=== PATIENT | male | born 1960 | race Caucasian/White ===

== ENCOUNTER → 2020-08-11 00:13 | Outpatient (CLI) | payer MEDICARE, OTHER, SELFPAY ==
[2020-08-11 19:32] LABS: SARS-CoV-2 RNA PCR Negative
== END ==
PROVIDERS: Visit Provider Surgery
DX: Z01.812 Encounter for preprocedural laboratory examination (principal); Z20.822 Contact with and (suspected) exposure to COVID-19
CPT/HCPCS: C9803; U0003; U0005

== ENCOUNTER 2020-08-14 01:41 | Day surgery (SDC) | payer MEDICARE, OTHER, SELFPAY ==
[2020-07-23 14:43] VITALS: BMI 28.4
[2020-08-14 06:51] VITALS: BMI 27.8
[2020-08-14 06:53] VITALS: BP 123/77; PULSE 67; RESP 18; TEMP 36.6; O2SAT 98
--- NOTE | 2020-08-14 06:56 | WPDANESEPPF ---
Anes - Initial Pre Proc Eval Procedure: Operation Date: 08/14/20 08:00 Proposed Procedures p Esophagogastroduodenoscopy & Screening Colonoscopy - Dylan Delgado DO Date/Time: 08/14/20 06:56 Surgeon: Dylan Delgado DO Pre Op Diagnosis: GERD, gastritis, neoplasm screening Patient Data Age: 59 Gender: M Height: 6 ft Weight: 92.9 kg Last Vital Signs Temp 36.6 C 08/14/20 06:53 Pulse 67 08/14/20 06:53 Resp 18 08/14/20 06:53 BP 123/77 08/14/20 06:53 Pulse Ox 98 08/14/20 06:53 Allergies Allergy/AdvReac Type Severity Reaction Status Date / Time erythromycin base Allergy Intermediate abd pain Verified 08/14/20 06:50 Home Medications Medication Instructions Recorded Confirmed Type alprazolam 1 mg PO TID PRN 07/23/20 07/23/20 History citalopram 07/23/20 History famotidine 20 mg PO BID 07/23/20 07/23/20 History pantoprazole 40 mg PO BID 07/23/20 07/23/20 History zolmitriptan [Zomig] 5 mg BID PRN 07/23/20 07/23/20 History Patient hx anesthesia problems: none Family hx anesthesia problems: none FORMERLY [facility], 1928–1983 Past Medical History Medical History Anxiety Cholelithiasis Depression GERD (gastroesophageal reflux disease) PTSD (post-traumatic stress disorder) Surgical History Surgical History History of cholecystectomy Social History Social History Smoking packs per day: 1 Smoking cigarettes per day: 20.0 Years smoked: 21 Smoking pack-years: 21.00 Smoking status: Former smoker Tobacco type: cigarettes Living arrangements: with family Gender identity (if verbalized by the patient): Male Spiritual care concerns: No Anes - Eval Final PreProcedure Day of Procedure 08/14/20 06:56 Patient weight: overweight Heart: regular rate and rhythm Lungs: clear to auscultation Airway: Mallampati scale class 1 Neurological: alert and oriented Last oral intake: >/= 8 hours ASA classification: III Emergent: no Anesthetic plan: proceed Anesthesia type and monitoring: general GIVS and standard monitoring Informed Consent: The patient's anesthetic plan and its attendant risks and benefits were discussed with the patient/family/POA. Questions were solicited and answers provided to the satisfaction of the patient/family/POA.
[2020-08-14] MEDS: LACTATED RINGERS 1,000 ML 150 ML IV CONT (07:03)
--- NOTE | 2020-08-14 07:56 | PM.IMHP ---
H&P: HPI History of Present Illness Date/Time: 08/14/20 07:56 Chief Complaint: GERD Narrative: Elliott Bethea is a 59 year old male presents with GERD symptoms and needs screening colonoscopy. fam hx colon cancer in his sister. Denies hematochezia or melena. He has to take famotidine and pantoprazole daily. Gets epigastric pain frequently but also has a past hx of pancreatitis. Review of Systems Review of Systems: All systems reviewed & are unremarkable except as noted in HPI and below Constitutional: Constitutional: Denies chills, Denies fever(s), Denies headache(s) and Denies weight loss Eyes: Eyes: Denies change in vision ENT: Denies dizziness, Denies headache(s), Denies neck mass and Denies throat swelling Cardiovascular: Cardiovascular: Denies chest pain, Denies lightheadedness and Denies dyspnea Respiratory: Respiratory: Denies cough, Denies dyspnea and Denies wheezing Gastrointestinal: Gastrointestinal: Reports as per HPI, Reports abdominal pain, Denies nausea and Denies vomiting Genitourinary: Genitourinary: Denies hematuria and Denies dysuria Musculoskeletal: Musculoskeletal: Reports as per HPI Integumentary/Breasts: Skin/Breast: Reports as per HPI Neurologic: Denies dizziness and Denies headache(s) Allergic/Immunologic: Allergic/Immunologic: Denies throat swelling and Denies wheezing PMFSH Past Medical History Medical History Anxiety Cholelithiasis Depression GERD (gastroesophageal reflux disease) PTSD (post-traumatic stress disorder) Surgical History Surgical History History of cholecystectomy Social History Social History Smoking packs per day: 1 Smoking cigarettes per day: 20.0 Years smoked: 21 Smoking pack-years: 21.00 Smoking status: Former smoker Tobacco type: cigarettes Living arrangements: with family Gender identity (if verbalized by the patient): Male Spiritual care concerns: No Meds Home Medications and Allergies Home Medications Medication Instructions Recorded Confirmed Type alprazolam 1 mg PO TID PRN 07/23/20 07/23/20 History citalopram 07/23/20 History famotidine 20 mg PO BID 07/23/20 07/23/20 History pantoprazole 40 mg PO BID 07/23/20 07/23/20 History zolmitriptan [Zomig] 5 mg BID PRN 07/23/20 07/23/20 History Allergies Allergy/AdvReac Type Severity Reaction Status Date / Time erythromycin base Allergy Intermediate abd pain Verified 08/14/20 06:50 Vital Signs Vital Signs - 24 hr 08/14/20 06:53 Temperature 36.6 C Pulse Rate 67 Respiratory Rate 18 Blood Pressure 123/77 Pulse Oximetry 98 Exam Const: General: no acute distress and alert Orientation/consciousness: patient oriented x3 HENMT: Head: normocephalic and atraumatic Ears: hearing grossly normal bilaterally General nose exam: Normal nares present Mouth: Yes Normal oral and palatal mucosa present Eyes: Periorbital: periorbital findings normal Sclera: sclerae normal EOM: EOMs intact bilaterally Neck: Neck: normal visual inspection, no lymphadenopathy and trachea midline Chest: Chest palpation & inspection: normal inspection of the chest Resp: Effort & Inspection: normal respiratory effort Auscultation: clear to auscultation bilaterally Cardio: Jugular venous distension: no JVD Rate: regular rate Rhythm: regular rhythm Heart sounds: S1 normal heart sound present and S2 normal heart sound present Peripheral pulses: Peripheral pulses 2+ throughout GI: Inspection: normal to inspection GI Palp: Yes Soft to palpation, No Tenderness to palpation present (GI), No Guarding due to palpation present (GI) and No Rebound tenderness present Percussion: Yes normal to percussion Auscultation: normal bowel sounds : General: Yes no CVA tenderness Back/Spine/Pelvis: Back: no CVA tenderness Neuro: G
[2020-08-14 08:41] VITALS: BP 103/58; PULSE 62; RESP 18; O2SAT 99
[2020-08-14 08:51] VITALS: BP 102/74; PULSE 60; RESP 18; O2SAT 99
[2020-08-14 09:01] VITALS: BP 126/84; PULSE 58; RESP 20; O2SAT 99
== END 2020-08-14 09:12 | disposition home or self-care (01) ==
PROVIDERS: Visit Provider Surgery
PROC: 0DJ08ZZ Inspection of Upper Intestinal Tract, Via Natural or Artificial Opening Endoscopic (ICD-10-PCS; CPT 43235; principal; 2020-08-14 08:00)
DX: Z12.11 Encounter for screening for malignant neoplasm of colon (principal); K64.8 Other hemorrhoids; Z80.0 Family history of malignant neoplasm of digestive organs; K21.9 Gastro-esophageal reflux disease without esophagitis; K44.9 Diaphragmatic hernia without obstruction or gangrene; K31.7 Polyp of stomach and duodenum; F41.8 Other specified anxiety disorders; F43.10 Post-traumatic stress disorder, unspecified; Z87.891 Personal history of nicotine dependence
CPT/HCPCS: 45378; 43239; 88305; C9803; J2704; J7120; U0003; U0005

== ENCOUNTER 2021-01-26 11:02 | Outpatient (CLI) | payer MEDICARE, OTHER, SELFPAY ==
--- NOTE | ~2021-01-26 | XR_ITS ---
EXAMINATION: XR hand LT min 3V, XR hand RT min 3V DATE: 01/26/2021 11:39 INDICATION: Bilateral hand pain. TECHNIQUE: 1. Posteroanterior, oblique and lateral views of the left hand were obtained. 2. Posteroanterior, oblique and lateral views of the right hand were obtained. COMPARISON: None. FINDINGS: Normal alignment at the bilateral hands. No fracture. Mild polyarticular osteoarthritis characterized by mild nonuniform joint space narrowing with a few tiny marginal osteophytes most prominent at the first carpal metacarpal joints, the first metacarpophalangeal and several predominantly distal interp halangeal joints. No erosions to suggest inflammatory arthritis. Soft tissues are unremarkable. IMPRESSION: 1. Mild polyarticular osteoarthritis at the bilateral hands. Reviewed, dictated and finalized at location A. IMPRESSION: 1. Mild polyarticular osteoarthritis at the bilateral hands.
== END 2021-01-26 11:03 | disposition home or self-care (01) ==
LOC: ANHIMG 11:07
DX: M79.642 Pain in left hand (principal); M79.641 Pain in right hand; M19.042 Primary osteoarthritis, left hand; M19.041 Primary osteoarthritis, right hand
CPT/HCPCS: 73130

== ENCOUNTER 2021-02-04 10:44 | Outpatient (CLI) | payer MEDICARE, OTHER, SELFPAY ==
--- NOTE | ~2021-02-04 | US_ITS ---
EXAMINATION: US carotid duplex BI DATE: 02/04/2021 11:32 INDICATION: Vertigo TECHNIQUE: Grayscale, color Doppler, and pulsed Doppler images of the cervical carotid arteries were obtained. The degree of vessel stenosis is placed in one of the following categories: normal, <50%, 5 0-69%, >=70% but less than near-occlusion, near-occlusion, or total occlusion. Note that percent sten osis relative to normal distal artery lumen diameter is indirectly measured from velocity measurement s as described by Mason, et al. Radiology 2003; 229:[id number]. Notes: Normal: Peak systolic velocity <125 centimeters/sec and no plaque <50%. Peak systolic velocity <125 ( EDV <40; ICA/CCA PSV ratio <2.0; used these factors only a tandem lesions or low cardiac output or co ntralateral disease) 50-69 %: PSV 125-230 (EDV 40-100; ratio 2-4) >= 70% but less than near occlusion: PSV greater than 230 (EDV > 100; ratio> 4.0) Near Occlusion: PSV that is variable; markedly narrowed lumen Occlusion: Absent flow on color/spectral Doppler and no lumen on sarabia scale. COMPARISON: None. FINDINGS: RIGHT: The right common carotid artery (CCA) peak systolic velocity (PSV) is 72 cm/s. The right internal car otid artery (ICA) PSV is 101 cm/s. The right ICA end-diastolic velocity (EDV) is 37 cm/s. The right I CA/CCA PSV ratio is 1.4. The external carotid artery (ECA) PSV is 106 cm/s. There is antegrade flow i n the right vertebral artery. LEFT: The left CCA PSV is 80 cm/s. The left ICA PSV is 90 cm/s. The left ICA EDV is 27 cm/s. The left ICA/C CA PSV ratio is 1.1. The ECA PSV is 104 cm/s. There is antegrade flow in the left vertebral artery. IMPRESSION: 1. Less than 50% stenosis in the right internal carotid artery by sonographic criteria. 2. Less than 50% stenosis in the left internal carotid artery by sonographic criteria. Reviewed, dictated and finalized at location A. IMPRESSION: 1. Less than 50% stenosis in the right internal carotid artery by sonographic richy ortiz. 2. Less than 50% stenosis in the left internal carotid artery by sonographic kishor pollard.
== END 2021-02-04 10:45 | disposition home or self-care (01) ==
DX: R42 Dizziness and giddiness (principal); I65.23 Occlusion and stenosis of bilateral carotid arteries
CPT/HCPCS: 93880

== ENCOUNTER 2022-03-29 08:01 | Outpatient (CLI) | payer MEDICARE, OTHER, SELFPAY ==
--- NOTE | ~2022-03-29 | US_ITS ---
EXAMINATION: US carotid duplex BI DATE: 03/29/2022 09:21 INDICATION: Carotid atherosclerosis and stenosis TECHNIQUE: Grayscale, color Doppler, and pulsed Doppler images of the cervical carotid arteries were obtained. The degree of vessel stenosis is placed in one of the following categories: normal, <50%, 5 0-69%, >=70% but less than near-occlusion, near-occlusion, or total occlusion. Note that percent sten osis relative to normal distal artery lumen diameter is indirectly measured from velocity measurement s as described by Mason, et al. Radiology 2003; [id number]. COMPARISON: 02/04/2021 FINDINGS: RIGHT: The right common carotid artery (CCA) peak systolic velocity (PSV) is 86 cm/s. The right internal car otid artery (ICA) PSV is 73 cm/s. The right ICA end-diastolic velocity (EDV) is 29 cm/s. The right IC A/CCA PSV ratio is 1.0. Grayscale and color Doppler images yield an estimate of <50% diameter reducti on from plaque in the ICA. The external carotid artery (ECA) PSV is 91 cm/s. There is antegrade flow in the right vertebral artery. LEFT: The left CCA PSV is 104 cm/s. The left ICA PSV is 77 cm/s. The left ICA EDV is 26 cm/s. The left ICA/ CCA PSV ratio is 1.4. Grayscale and color Doppler images yield an estimate of <50% diameter reduction from plaque in the ICA. The ECA PSV is 103 cm/s. There is antegrade flow in the left vertebral arter y. IMPRESSION: 1. <50% stenosis in the right internal carotid artery. 2. <50% stenosis in the left internal carotid artery. Reviewed, dictated and finalized at location B.
== END 2022-03-29 08:02 | disposition home or self-care (01) ==
DX: I65.23 Occlusion and stenosis of bilateral carotid arteries (principal)
CPT/HCPCS: 93880

== ENCOUNTER 2022-07-30 09:16 | Emergency (ER) | payer OTHER, MEDICARE, SELFPAY ==
--- NOTE | ~2022-07-30 | XR_ITS ---
AP and oblique views of the left ribs, and PA chest radiograph Clinical History: Pain Findings: Minimally displaced fracture at the very anterior aspect of the left sixth rib is noted. Krys ngs are clear, without focal consolidation or pleural effusion. Cardiomediastinal contour is within n ormal limits. Soft tissues are unremarkable. Impression: Minimally displaced fracture at the anterior aspect of the left sixth rib. Clear lungs. Reviewed, dictated and finalized at location . L TEACHER Impression: Minimally displaced fracture at the anterior aspect of the left sixth rib. Clear lungs.
[2022-07-30 09:26] VITALS: BP 161/91; PULSE 46; RESP 15; TEMP 36.6; O2SAT 98
--- NOTE | 2022-07-30 10:56 | ED.FALL ---
HPI - Fall General Chief Complaint: Fall Stated Complaint: fall 4 days ago Time Seen by Provider: 07/30/22 09:39 Source: patient Mode of arrival: ambulatory Limitations: no limitations History of Present Illness HPI Narrative: Patient is a 61-year-old male who presents to the ED with report of left anterior rib pain. Patient reports he tripped and fell on 07/21 and landed with his chest wall directly against the edge of a chair. He did not hit his head or lose consciousness. He has complained of pain to his left anterior ribs since the fall. He has been taking Tylenol and a muscle relaxer with minimal relief. He states pain is worse with movement, laughing, coughing. He denies any trouble breathing. Denies any other areas of pain. He was unable to get into see his primary care doctor and was referred here for further evaluation. Related Data Home Medications Medication Instructions Recorded Confirmed alprazolam 1 mg tablet 1 mg PO TID PRN Anxiety 07/23/20 07/23/20 citalopram 07/23/20 famotidine 20 mg tablet 20 mg PO BID 07/23/20 07/23/20 pantoprazole 40 mg tablet,delayed 40 mg PO BID 07/23/20 07/23/20 release zolmitriptan 5 mg tablet (Zomig) 5 mg BID PRN Migraine Headache 07/23/20 07/23/20 Allergies Allergy/AdvReac Type Severity Reaction Status Date / Time erythromycin base Allergy Intermediate abd pain Verified 08/14/20 06:50 Review of Systems Review of Systems: CONSTITUTIONAL: Denies fever, chills, or sweats. CARDIOVASCULAR: See HPI. RESPIRATORY: Denies dyspnea. GASTROINTESTINAL: Denies abdominal pain, nausea, vomiting. MUSCULOSKELETAL: See HPI. NEUROLOGIC: Denies HI, LOC, headache, numbness, or weakness. All systems reviewed & are unremarkable except as noted in HPI and below PMFSH Past Medical History Medical History Anxiety Cholelithiasis Depression GERD (gastroesophageal reflux disease) PTSD (post-traumatic stress disorder) Surgical History Surgical History History of cholecystectomy Social History Social History Smoking packs per day: 1 Smoking cigarettes per day: 20.0 Years smoked: 21 Smoking pack-years: 21.00 Smoking status: Former smoker Tobacco type: cigarettes Living arrangements: with family Gender identity (if verbalized by the patient): Male Spiritual care concerns: No Exam Narrative: GENERAL: Well appearing, well-nourished, non-toxic, in no acute distress. HEAD: Normocephalic, atraumatic. NECK: Supple. No adenopathy, no masses. RESPIRATORY: Airway patent, respirations nonlabored. Clear to auscultation bilaterally, no rales, rhonchi, wheezing. No splinting. CARDIOVASCULAR: Regular rate and rhythm without murmurs, rubs, or gallops. Radial pulses 2+ and equal bilaterally. ABDOMINAL: Soft, nontender, nondistended, no hepatosplenomegaly. Normoactive BS. MUSCULOSKELETAL: Moves all extremities. Strength/ROM intact without gross deformities. Point tenderness over left lower anterior chest wall/rib cage, reproducing pain. SKIN: Warm, dry, normal color. No rashes. NEURO: A&O X3. Speech clear. Cranial nerves II-XII grossly intact. Steady gait. No ataxic movements. PSYCHIATRIC: Appropriate mood and affect. Normal interaction. Course Vital Signs Vital signs: Vital Signs Temperature 98 F 07/30/22 09:26 Pulse Rate 46 L 07/30/22 09:26 Respiratory Rate 15 07/30/22 09:26 Blood Pressure 161/91 H 07/30/22 09:26 Pulse Oximetry 98 07/30/22 09:26 Oxygen Delivery Room Air 07/30/22 09:26 Temperature 98 F 07/30/22 09:26 Pulse Rate 46 L 07/30/22 09:26 Respiratory Rate 15 07/30/22 09:26 Blood Pressure 161/91 H 07/30/22 09:26 Pulse Oximetry 98 07/30/22 09:26 Oxygen Delivery Room Air 07/30/22 09:26 MDM - Fall MDM Narrative Medical decision making narrative
--- NOTE | 2022-07-30 11:05 | ECG_ITS ---
Measurements Intervals [place] Rate: 54 P: 27 WI: 177 QRS: 3 QRSD: 105 T: -2 QT: 420 QTc: 400 Interpretive Statements SINUS BRADYCARDIA OTHERWISE NORMAL ECG COMPARED TO ECG 03/06/2019 23:12:40 NO SIGNIFICANT CHANGES Electronically Signed On 07-30-2022 13:15:34 NUCLEAR CONTROL ROOM OPERATOR by Hitesh Cruz M.D.
== END 2022-07-30 11:47 | disposition home or self-care (01) ==
PROVIDERS: Emergency Provider Physician Assistant
DX: S22.32XA Fracture of one rib, left side, initial encounter for closed fracture (principal); K21.9 Gastro-esophageal reflux disease without esophagitis; F41.9 Anxiety disorder, unspecified; F32.A Depression, unspecified; F43.10 Post-traumatic stress disorder, unspecified; Z87.891 Personal history of nicotine dependence; W01.190A Fall on same level from slipping, tripping and stumbling with subsequent striking against furniture, initial encounter
CPT/HCPCS: 71101; 93005; 99283

== ENCOUNTER 2022-09-15 07:48 | Day surgery (SDC) | payer OTHER, SELFPAY ==
[2022-09-08 14:21] VITALS: BMI 32.8
--- NOTE | 2022-09-15 08:07 | WPDHPUPDATE1 ---
History and Physical Update Update Date/Time: 09/15/22 08:07 History and Physical has been reviewed, including an updated exam of the patient. There are NO changes in the patient's condition. Risks, benefits, and alternatives have been discussed and questions answered. Patient agrees to proceed with procedure.
[2022-09-15 08:50] VITALS: BP 126/83; PULSE 62; RESP 20; TEMP 36.9; O2SAT 100
--- NOTE | 2022-09-15 09:14 | P.PNAN_ITS ---
Anes - Initial Pre Proc Eval Procedure: Operation Date: 09/15/22 09:30 Proposed Procedures p Cataract Extraction with Lens Implant-Left Eye - Sal Guan MD Date/Time: 09/15/22 09:14 Surgeon: Sal Guan MD Pre Op Diagnosis: Age related nuclear cataract left eye Patient Data Age: 62 Gender: M Height: 1.85 m Weight: 113 kg Allergies Allergy/AdvReac Type Severity Reaction Status Date / Time amoxicillin [From Augmentin] AdvReac Abdominal Verified 09/08/22 14:25 Pain clavulanic acid AdvReac Abdominal Verified 09/08/22 14:25 [From Augmentin] Pain Home Medications Medication Instructions Recorded Confirmed Type alprazolam 1 mg tablet 1 mg PO TID PRN Anxiety 07/23/20 09/08/22 History citalopram 1 tab-cap PO DAILY 07/23/20 09/08/22 History famotidine 20 mg tablet 20 mg PO BID 07/23/20 09/08/22 History pantoprazole 40 mg tablet,delayed 40 mg PO BID 07/23/20 09/08/22 History release zolmitriptan 5 mg tablet (Zomig) 5 mg BID PRN Migraine Headache 07/23/20 09/08/22 History hydrocodone 5 mg-acetaminophen 325 1 tablet PO Q6H PRN pain #15 tabs 07/30/22 09/08/22 Rx mg tablet Patient hx anesthesia problems: none Family hx anesthesia problems: none Results Review: All pre-operative results and documents have been reviewed as part of the pre- operative evaluation. [facility] Past Medical History Medical History (Updated 09/15/22 @ 09:16 by Benja Naranjo MD) Anxiety Cholelithiasis Chronic narcotic use Depression GERD (gastroesophageal reflux disease) Osteoarthritis PTSD (post-traumatic stress disorder) Surgical History Surgical History History of cholecystectomy Social History Social History Smoking packs per day: 1 Smoking cigarettes per day: 20.0 Years smoked: 21 Smoking pack-years: 21.00 Smoking status: Never smoker Tobacco type: cigarettes Alcohol intake: never Substance use: never Substance use type: does not use Living arrangements: with family Gender identity (if verbalized by the patient): Male Spiritual care concerns: No Anes - Eval Final PreProcedure Day of Procedure 09/15/22 09:14 Patient weight: obese Heart: regular rate and rhythm Lungs: clear to auscultation Airway: Mallampati scale class 1 Neurological: alert and oriented Last oral intake: >/= 8 hours ASA classification: III Emergent: no Anesthetic plan: proceed Anesthesia type and monitoring: monitored anesthesia care and standard monitoring Results Review: All pre-operative results and documents have been reviewed as part of the pre- operative evaluation. Informed Consent: The patient's anesthetic plan and its attendant risks and benefits were discussed with the patient/family/POA. Questions were solicited and answers provided to the satisfaction of the patient/family/POA.
[2022-09-15] MEDS: TETRACAINE HCL 0.5% OPHTH SOLN 4 ML BTL 1 DROP AFFCTD EYE ×3 (09:20→09:30)
[2022-09-15] MEDS: OFLOXACIN 0.3% OPHTH SOLN 5 ML BTL 1 DROP AFFCTD EYE (09:20)
[2022-09-15] MEDS: LIDOCAINE HCL 2% JELLY 5 ML TUBE 1 APPLIC AFFCTD EYE (09:57)
[2022-09-15] MEDS: LIDOCAINE HCL 1% PF INJ 5 ML VIAL 1 ML INTRAOCULA (10:10)
[2022-09-15] MEDS: NEOMYCIN/POLYMYXIN/DEXAMETH OP OINT 3.5 GM TUBE 1 APPLIC AFFCTD EYE (10:17)
[2022-09-15] MEDS: HOME MEDICATION 1 EACH AFFCTD EYE (10:21)
[2022-09-15 10:26] VITALS: BP 131/82; PULSE 64; RESP 16; O2SAT 98
[2022-09-15] MEDS: acetaZOLAMIDE TAB 250 MG TABLET PO (10:40)
--- NOTE | 2022-09-15 11:50 | W.PM.PROC2 ---
Procedure Note - Detailed Date of Procedure 09/15/22 Pre-op Diagnosis Age related nuclear cataract left eye Post-op Diagnosis Same Procedure Performed Cataract Extraction (by Phacoemulsification) and lntraocular Lens Implant Surgeon Sal Guan MD Anesthesia MAC Description of Procedure The eye was anesthetized with topical 0.75% bupivacaine. After intravenous sedation and placement of monitors, the patient was prepped and draped in the usual sterile manner. A lid speculum was placed. A paracentesis was made, and preservative free 1% lidocaine was instilled in the anterior chamber. The anterior chamber was then filled with Viscoat viscoelastic. A elana keratome was used to create the wound. Continuous tear anterior capsulotomy was performed. The lens was hydro dissected before being removed with phacoemulsification. The remaining lenticular cortex was removed with aspiration. The capsular bag was polished and filled with viscoelastic material. An intraocular lens was chosen, inspected, irrigated and placed within the capsular bag where it was seen to be centered and stable. The viscoelastic material was aspirated. The wound was closed and found to be watertight. Ciloxan drops were placed in the eye. The speculum was removed. A Escalera shield was applied. The patient tolerated the procedure well and left the operating room in satisfactory condition. Implants See chart Complications None Condition Stable Disposition Same day
--- NOTE | 2022-09-15 11:52 | WPDANESPN ---
Anes - Prog Note Post-Op Date/Time: 09/15/22 11:52 Cardiovascular status: normal Respiratory status: normal Airway patency: baseline Mental status: baseline Post-Op hydration status: normal Vital Signs: Last Vital Signs Temp 36.9 C 09/15/22 08:50 Pulse 64 09/15/22 10:26 Resp 16 09/15/22 10:26 BP 131/82 09/15/22 10:26 Pulse Ox 98 09/15/22 10:26 O2 Del Method Room Air 09/15/22 10:26 Pain Score (VAS): 0 Post-procedural complaints: none Patient Feedback: Patient satisfied with anesthetic care.
== END 2022-09-15 10:45 | disposition home or self-care (01) ==
PROVIDERS: Visit Provider Student in an Organized Health Care Education/Training Program
PROC: (CPT 66983; principal; 2022-09-15 09:30)
DX: H25.12 Age-related nuclear cataract, left eye (principal)
CPT/HCPCS: 66984

== ENCOUNTER 2022-10-06 11:11 | Emergency (ER) | payer MEDICARE, OTHER, MEDICAID, SELFPAY ==
[2022-10-06 11:26] VITALS: BP 136/74; PULSE 65; RESP 18; TEMP 36.2; O2SAT 99
--- NOTE | 2022-10-06 11:39 | ED.URI ---
HPI - URI/Sore Throat General Chief Complaint: Upper Respiratory Infection Stated Complaint: sorethroat Time Seen by Provider: 10/06/22 11:39 Source: patient, RN notes reviewed and old records reviewed Mode of arrival: ambulatory Limitations: no limitations History of Present Illness HPI Narrative: 62-year-old male who presents to [facility] with complaints sore throat for 2 day duration with some nasal congestion and drainage. Patient denies any cough or any shortness of breath or any ear pain, or any noted fevers, chills, sweats or any body aches. Patient has been taking nicky Demotte cold and flu medication OTC for his symptoms. Patient reports no ill contacts. MD elicited complaint: sore throat Onset (ago): day(s) (2) Pain scale (0-10): 4 Able to tolerate fluids by mouth: Yes Treatments prior to arrival: cold medicine Related Data Home Medications Medication Instructions Recorded Confirmed alprazolam 1 mg tablet 1 mg PO TID PRN Anxiety 07/23/20 10/06/22 citalopram 1 tab-cap PO DAILY 07/23/20 10/06/22 famotidine 20 mg tablet 20 mg PO BID 07/23/20 09/15/22 pantoprazole 40 mg tablet,delayed 40 mg PO BID 07/23/20 10/06/22 release zolmitriptan 5 mg tablet (Zomig) 5 mg BID PRN Migraine Headache 07/23/20 09/15/22 Allergies Allergy/AdvReac Type Severity Reaction Status Date / Time amoxicillin [From Augmentin] AdvReac Abdominal Verified 10/06/22 11:30 Pain clavulanic acid AdvReac Abdominal Verified 10/06/22 11:30 [From Augmentin] Pain Review of Systems Review of Systems: CONSTITUTIONAL: Denies malaise, chills, sweats, or fever. EYES: Denies visual changes, redness, or discharge. ENT: Reports rhinorrhea, congestion, sinus pain,no otalgia, positive for sore throat. CARDIOVASCULAR: Denies chest pain, palpitations, or edema. RESPIRATORY: Reports no cough.? Denies dyspnea. GASTROINTESTINAL: Denies abdominal pain, nausea, vomiting, diarrhea SKIN: Denies rash or itching. MUSCULOSKELETAL: Denies myalgia. NEUROLOGIC: Denies headache. All systems reviewed & are unremarkable except as noted in HPI and below PMFSH Past Medical History Medical History Anxiety Cholelithiasis Chronic narcotic use Depression GERD (gastroesophageal reflux disease) Osteoarthritis PTSD (post-traumatic stress disorder) Surgical History Surgical History History of cholecystectomy Social History Social History Smoking packs per day: 1 Smoking cigarettes per day: 20.0 Years smoked: 21 Smoking pack-years: 21.00 Smoking status: Former smoker Tobacco type: cigarettes Alcohol intake: never Substance use: never Substance use type: does not use Living arrangements: with family Gender identity (if verbalized by the patient): Male Spiritual care concerns: No Comments At time of signature, agree with nursing past medical, surgical, social and family history. There is no relevant family history pertinent to the presenting complaint Exam Narrative: GENERAL: Well-appearing, well-nourished, and in no acute distress. HEAD: Normocephalic EYES: PERRLA, conjunctivae clear ENT: Nares clear, turbinates edematous and erythematous, clear discharge. Mucous membranes moist. TM pearly sarabia with dull light reflex bilaterally; no tragal tenderness. Oropharynx erythematous without lesions. Tonsils not enlarged and without exudate, no drooling, no hoarseness, no trismus, uvula midline. NECK: Supple. No lymphadenopathy CHEST: Clear to auscultation, breath sounds equal. No wheezing, rhonchi, rales, or stridor. No respiratory distress, speaks in full sentences. no tachypnea SAO2 99% on room air. HEART: Regular rate and rhythm. No murmur heard. SKIN: Warm, dry, no rash. NEURO: Alert and oriented x3. PSYCH: Normal mood and affect Course
== END 2022-10-06 12:06 | disposition home or self-care (01) ==
PROVIDERS: Emergency Provider Registered Nurse
DX: J02.9 Acute pharyngitis, unspecified (principal); K21.9 Gastro-esophageal reflux disease without esophagitis; M19.90 Unspecified osteoarthritis, unspecified site; F41.9 Anxiety disorder, unspecified; F32.A Depression, unspecified; F43.10 Post-traumatic stress disorder, unspecified
CPT/HCPCS: 87081; 87880; 99213; G0463

== ENCOUNTER 2024-01-10 10:22 | Outpatient (CLI) | payer MEDICARE, OTHER, SELFPAY ==
--- NOTE | ~2024-01-10 | DEXA_ITS ---
Bone Density Report Name: CHAU SHARIF Age: 63 Sex: Male Ethnicity: White Date of : 1960 Indication: Referring Provider: PAMELA MERRITT Study: Bone densitometry was performed. Exam Date: January 10, 2024 Accession number: [id number] Bone Density: Region BMD T-score Z-score Classification AP Spine(L1-L4) 0.871 -2.0 -1.3 Osteopenia Femoral Neck (Left) 0.746 -1.4 -0.4 Osteopenia Total Hip (Left) 1.022 -0.1 0.4 Normal Femoral Neck (Right) 0.759 -1.3 -0.3 Osteopenia Total Hip (Right) 1.007 -0.2 0.3 Normal Total Hip Mean 1.014 -0.2 0.4 Normal World Health Organization criteria for BMD impression classify patients as: Normal (T-score at or above -1.0), Osteopenia (T-score between -1.0 and -2.5), or Osteoporosis (T-score at or below -2.5). 10-year Fracture Risk(1): Major Osteoporotic Fracture 5.4% Hip Fracture 0.6% Reported Risk Factors: [place] (), Neck BMD=0.746, BMI=30.9 (1) FRAX(R) Version 3.08. Fracture probability calculated for an untreated patient. Fracture probability may be lower if the patient has received treatment. Clinical Information Provided by Patient: Patient maximum height was 72 No regular weight bearing exercise Drinks caffeinated beverages Impression: The patient has low bone mass, based on the Total Spine T-score. The patient has an estimated ten-year risk of hip fracture of 0.6% and an estimated ten-year risk of major fracture of 5.4%, based on the WHO FRAX algorithm. Discussion: BONE DENSITY IS LOW AT ONE OR MORE SKELETAL SITES. This patient's lowest T-score is low at one or more skeletal sites. It meets the World Health Organization's (WHO) criteria for ?low bone mass? (T-score between -1.0 and -2.5). The patient's 10-year risk of fracture as calculated by FRAX is less than the threshold where pharmacological therapy is recommended by the National Osteoporosis Foundation (NOF). However, all treatment decisions require clinical judgment and consideration of individual patient factors, including patient preferences, comorbidities, previous drug use, risk factors not captured in the FRAX model (e.g., frailty, falls, vitamin D deficiency, increased bone turnover, interval significant decline in bone density) and possible under or overestimation of fracture risk by FRAX. The patient should follow a healthful lifestyle (good nutrition with adequate calcium and vitamin D, and appropriate weight-bearing exercise). Follow-Up: Consider repeating this study in 2 to 3 years to reassess this patient's status, or sooner if there is some new clinical indication. Reported by: DOMINIQUE on 01/10/2024 11:02:00 AM. Reviewed, dictated and finalized at location A.
== END 2024-01-10 10:23 | disposition home or self-care (01) ==
PROVIDERS: PCP Emergency Medicine; Visit Provider Emergency Medicine
DX: M85.89 Other specified disorders of bone density and structure, multiple sites (principal); M81.0 Age-related osteoporosis without current pathological fracture; E55.9 Vitamin D deficiency, unspecified
CPT/HCPCS: 77080

== ENCOUNTER 2024-01-11 10:16 | Emergency (ER) | payer MEDICARE, OTHER, SELFPAY ==
[2024-01-11 10:35] VITALS: BP 132/81; PULSE 60; RESP 18; TEMP 36.2; O2SAT 99
--- NOTE | 2024-01-11 11:02 | ED.NAVMDI ---
HPI - Nausea/Vomiting/Diarrhea General Chief complaint: Nausea/Vomiting/Diarrhea Stated complaint: diarrhea Time Seen by Provider: 01/11/24 11:02 History of Present Illness HPI Narrative: patient reports that he has had diarrhea for approximately 4 days, 4 episodes per day. He reports that symptoms began after coming back from [place]. He reports that everybody that he traveled with has had the same symptoms for the same amount of time. He denies any nausea or vomiting. Denies any blood in the stool. Denies any abdominal pain. Related Data Home Medications Medication Instructions Recorded Confirmed alprazolam 1 mg tablet 1 mg PO TID PRN Anxiety 07/23/20 01/11/24 pantoprazole 40 mg tablet,delayed 40 mg PO BID 07/23/20 01/11/24 release zolmitriptan 5 mg tablet (Zomig) 5 mg BID PRN Migraine Headache 07/23/20 01/11/24 atorvastatin 20 mg tablet 20 mg PO DAILY 03/14/23 01/11/24 citalopram 40 mg tablet 20 mg PO DAILY 03/14/23 01/11/24 famotidine 20 mg tablet 20 mg PO DAILY 03/14/23 01/11/24 Allergies Allergy/AdvReac Type Severity Reaction Status Date / Time amoxicillin [From Augmentin] AdvReac Abdominal Verified 11/18/23 08:46 Pain clavulanic acid AdvReac Abdominal Verified 11/18/23 08:46 [From Augmentin] Pain Review of Systems Review of Systems: All systems reviewed & are unremarkable except as noted in HPI and below Constitutional: Constitutional: Reports no additional constitutional complaints ENT: Reports system reviewed and no additional complaints, except as documented Cardiovascular: Cardiovascular: Reports no additional cardiovascular complaints Respiratory: Respiratory: Reports no additional respiratory complaints Gastrointestinal: Gastrointestinal: Reports no additional gastrointestinal complaints, Denies melena, Denies hematochezia, Reports change in bowel habits, Reports change in stool character, Reports diarrhea, Reports loose stools, Denies nausea and Denies vomiting PMFSH Past Medical History Medical History Anxiety Cholelithiasis Chronic narcotic use Depression GERD (gastroesophageal reflux disease) Osteoarthritis PTSD (post-traumatic stress disorder) Surgical History Surgical History History of cholecystectomy Social History Social History Smoking packs per day: 1 Smoking cigarettes per day: 20.0 Years smoked: 21 Smoking pack-years: 21.00 Smoking status: Former smoker Tobacco type: cigarettes Alcohol intake: never Substance use: never Substance use type: does not use Lack of Transportation: No Lack of Food: Never True Current Housing: I Have Housing Concerned About Future Housing: No Difficulty Paying Gas/Electric Bills: No Difficulty Paying for Meds: No Currently Unemployed: No Education: Decline to Answer Difficulty w/ Childcare or Family Care: No Living arrangements: with family Gender identity (if verbalized by the patient): Male Spiritual care concerns: No Exam Const: General: cooperative, no acute distress, alert and awake Orientation/consciousness: oriented to person, oriented to place and oriented to time HENMT: Head: normal to inspection Resp: Effort & Inspection: normal respiratory effort and able to speak in complete sentences Auscultation: clear to auscultation bilaterally, no crackles, no rales, no rhonchi and no wheezes Cardio: Palpation: normal PMI Rate: regular rate Rhythm: regular rhythm Heart sounds: S1 normal heart sound present and S2 normal heart sound present GI: GI Palp: No abdominal tenderness, Yes Soft to palpation, No Tenderness to palpation present (GI), No Guarding due to palpation present (GI) and No Rigid due to palpation Auscultation: normal bowel sounds Neuro: General: oriented to person, oriented to place and oriented to ti
== END 2024-01-11 11:15 | disposition home or self-care (01) ==
PROVIDERS: Emergency Provider Nurse Practitioner Family; PCP Emergency Medicine
DX: A09 Infectious gastroenteritis and colitis, unspecified (principal); Z87.891 Personal history of nicotine dependence; K21.9 Gastro-esophageal reflux disease without esophagitis; M19.90 Unspecified osteoarthritis, unspecified site; F41.9 Anxiety disorder, unspecified; F32.A Depression, unspecified
CPT/HCPCS: 99213; G0463